=== PATIENT | female | born 1960 | race Caucasian/White ===

== ENCOUNTER → 2016-08-30 | Outpatient (CLI) | payer OTHER ==
[2016-03-30 10:21] VITALS: BP 137/80
[~2016-08-30] MED LIST: ADAL40PE2 SQ; APIX5TAB PO; DIGO125T16 PO; DIGO250T PO; MESA0.37 PO; METH10TA6 PO; METH10TA76 PO; METO25TA4 PO; MULT1TAB52 PO; OMEG1CAP30 PO; OMEG1CAP6 PO; PROP10TA PO; PSYL1PAC7 PO; SACU1TAB7 PO
--- NOTE | 2016-08-30 15:21 | CARD ---
APPROVED REPORT EXAM: Two-dimensional and M-mode echocardiogram with Doppler and color Doppler. Other Information Quality : Good Rhythm : Bradycardia INDICATION Atrial Fibrillation 2D DIMENSIONS Left Atrium(2D)3.1 (1.6-4.0cm)IVSd1.1 (0.7-1.1cm) Aortic Root(2D)2.2 (2.0-3.7cm)LVDd4.7 (3.9-5.9cm) LVOT Diameter1.9 (1.8-2.4cm)PWd1.0 (0.7-1.1cm) LVDs3.6 (2.5-4.0cm)FS (%) 22.5 % SV46.0 ml Aortic Valve AoV Peak Daniel.197.9cm/sAoV VTI44.1cm AO Peak GR.15.7mmHgLVOT Peak Daniel.118.3cm/s AO Mean GR.8mmHgAVA (VMAX)1.67cm2 DAYNA (VTI)1.80cm2 Mitral Valve MV E Gcrjsajn10.6cm/sMV DECEL [id number] MV A Adihwpwm21.1cm/sE/A Ratio1.1 Tricuspid Valve TR P. Sttzpjnt004il/sRAP [id number] TR Peak Gr.80mrXvHYCI76zoDq Pulmonary Vein S1 Caapohrr12.7cm/sD2 Biprubin98.0cm/s PVa [id number] LEFT VENTRICLE The left ventricle is normal size. There is normal left ventricular wall thickness. Left ventricle sy stolic function is normal. The Ejection Fraction is 50%. Septal motion consistent with conduction abn ormality. RIGHT VENTRICLE The right ventricle is normal size. The right ventricular systolic function is normal. ATRIA The left atrium size is normal. The right atrium size is normal. The interatrial septum is intact wit h no evidence for an atrial septal defect or patent foramen ovale as noted on 2-D or Doppler imaging. AORTIC VALVE The aortic valve is calcified but opens well. Doppler and Color Flow revealed no significant aortic r egurgitation. There is no significant aortic valvular stenosis. MITRAL VALVE The mitral valve is calcified but opens well. There is no evidence of mitral valve prolapse. There is no mitral valve stenosis. Doppler and Color-flow revealed trace mitral regurgitation. TRICUSPID VALVE The tricuspid valve is normal in structure and function. Doppler and Color Flow revealed trace to mil d tricuspid regurgitation. The PA pressure was estimated at 29 mmHg. There is no tricuspid valve sten osis. PULMONIC VALVE The pulmonary valve is normal in structure and function. Doppler and Color Flow revealed trace pulmon ic valvular regurgitation. There is no pulmonic valvular stenosis. GREAT VESSELS The aortic root is normal in size. The ascending aorta is normal in size. The IVC is normal in size a nd collapses >50% with inspiration. PERICARDIAL EFFUSION There is no evidence of significant pericardial effusion. Critical Notification Critical Value: No <Conclusion> Left ventricle systolic function is normal. The Ejection Fraction is 50%. Trace mitral regurgitation. Trace to mild tricuspid regurgitation. The PA pressure was estimated at 29 mmHg. There is no evidence of significant pericardial effusion.
== END | disposition home or self-care (01) ==
LOC: ECHO 13:56
PROVIDERS: ATTEND Internal Medicine Cardiovascular Disease
DX: I48.0 Paroxysmal atrial fibrillation (principal); I07.1 Rheumatic tricuspid insufficiency; I34.0 Nonrheumatic mitral (valve) insufficiency; I37.1 Nonrheumatic pulmonary valve insufficiency
CPT/HCPCS: 93306

== ENCOUNTER → 2017-11-23 | Outpatient (CLI) | payer OTHER | END | disposition home or self-care (01) | LOC: ECHO 14:04 | DX: I48.0 Paroxysmal atrial fibrillation (principal); I34.0 Nonrheumatic mitral (valve) insufficiency; E03.9 Hypothyroidism, unspecified | CPT/HCPCS: 93306 ==

== ENCOUNTER → 2018-01-11 | Day surgery (SDC) | payer OTHER ==
[~2018-01-11] MED LIST changes: -ADAL40PE2 SQ; -APIX5TAB PO; +BENZOCAINE ONE 20% MUCOSAL SPRAY.; -DIGO125T16 PO; -DIGO250T PO; +LIDOCAINE 1% PF 2 ML VIAL. ID; +LIDOCAINE 2% TOPICAL JELLY 5GM TUBE. TP; +LIDOCAINE 2% VISCOUS 15 ML SOLUTION.; -MESA0.37 PO; -METH10TA6 PO; -METH10TA76 PO; -METO25TA4 PO; +MORPHINE SULFATE 2 MG/ML DISP.SYRIN. IV; -MULT1TAB52 PO; -OMEG1CAP30 PO; -OMEG1CAP6 PO; +ONDANSETRON PF 4 MG/2 ML VIAL. IV; +PROCHLORPERAZINE 10 MG/2 ML VIAL. IV; -PROP10TA PO; -PSYL1PAC7 PO; -SACU1TAB7 PO; +fentaNYL PF VIAL 100 MCG/2 ML VIAL IV
[2018-01-11] MEDS: IV RINGERS,LACTATED 1000ML 1,000 ML IV (10:00)
[2018-01-11] MEDS: BENZOCAINE ONE 20% MUCOSAL SPRAY. MM (10:52)
[2018-01-11] MEDS: LIDOCAINE 2% VISCOUS 15 ML SOLUTION. SWSW (10:52)
[2018-01-11] MEDS: LIDOCAINE 2% TOPICAL JELLY 5GM TUBE. TP ×2 (10:52→11:00)
== END ==
LOC: SURG 09:37
DX: I34.0 Nonrheumatic mitral (valve) insufficiency (principal); I48.0 Paroxysmal atrial fibrillation; E03.9 Hypothyroidism, unspecified; I95.9 Hypotension, unspecified; I42.9 Cardiomyopathy, unspecified; E66.9 Obesity, unspecified; Z68.29 Body mass index [BMI] 29.0-29.9, adult; E05.90 Thyrotoxicosis, unspecified without thyrotoxic crisis or storm; Z98.890 Other specified postprocedural states; Z90.49 Acquired absence of other specified parts of digestive tract; Z88.8 Allergy status to other drugs, medicaments and biological substances; Z82.49 Family history of ischemic heart disease and other diseases of the circulatory system
CPT/HCPCS: 76376; 93312; 93320; 93325